=== PATIENT | male | born 1995 | race Caucasian/White ===

== ENCOUNTER 2017-01-15 21:07 | Emergency (ER) | payer OTHER ==
[2017-01-15 21:29] VITALS: BP 122/57
--- NOTE | 2017-01-16 03:36 | ED ---
Kenan Ledesma Rebecca, scribed for Oliver Roberts on 01/15/17 at 2200 . Laceration/Wound HPI - HPI Summary HPI Summary: Pt is a 21 y/o M who presents to ED c/o head laceration s/p skiing incident. Pt reports that tonight he was skiing and while performing a back flip, hit the posterior region of his head with the skiis. Incident occurred at 1800 tonight. Pain began immediately, has been constant since onset, and is localized to the region of the laceration. Pain is currently ranked 4/10. Sx aggravated and alleviated by nothing. Denies LOC. UTD Tetanus. - History of Current Complaint Stated Complaint: HEAD LAC Time Seen by Provider: 01/15/17 21:54 Hx Obtained From: Patient Onset/Duration: Sudden Onset, Still Present Aggravating: Nothing Alleviating: Nothing Timing: Constant Onset Severity: Moderate Current Severity: Moderate Pain Intensity: 4 Pain Scale Used: 0-10 Numeric Associated Signs & Symptoms: Negative - Allergy/Home Medications Allergies/Adverse Reactions: Allergies Allergy/AdvReac Type Severity Reaction Status Date / Time Amoxicillin Allergy Unknown Verified 01/15/17 21:27 Reaction Details Peanut-containing Drug Allergy Unknown Verified 01/15/17 21:27 Products Reaction Details PMH/Surg Hx/FS Hx/Imm Hx Previously Healthy: Yes Endocrine/Hematology History: Denies: Hx Diabetes Cardiovascular History: Denies: Hx Hypertension Infectious Disease History: No Infectious Disease History: Denies: Traveled Outside the [place] in Last 30 Days - Family History Known Family History: Negative: Hypertension - Social History Occupation: Student Alcohol Use: Occasionally Substance Use Type: Reports: None Smoking Status (MU): Never Smoked Tobacco Review of Systems Positive: Other - Posterior head laceration Neurological: Other - Denies LOC All Other Systems Reviewed And Are Negative: Yes Physical Exam Triage Information Reviewed: Yes Vital Signs On Initial Exam: Initial Vitals Temp Pulse Resp BP Pulse Ox 98.4 F 72 16 122/57 99 01/15/17 21:27 01/15/17 21:27 01/15/17 21:27 01/15/17 21:27 01/15/17 21:27 Vital Signs Reviewed: Yes Appearance: Positive: Well-Appearing, No Pain Distress Skin: Positive: Warm, Skin Color Reflects Adequate Perfusion, Dry, Other - 2 cm laceration to the left parietal temporal region Eyes: Positive: EOMI, CATALINA ENT: Positive: Normal ENT inspection Neck: Positive: Supple, Nontender Respiratory/Lung Sounds: Positive: Clear to Auscultation, Breath Sounds Present Cardiovascular: Positive: RRR, Pulses are Symmetrical in both Upper and Lower Extremities Abdomen Description: Positive: Nontender, Soft Bowel Sounds: Positive: Present Musculoskeletal: Positive: Normal, Strength/ROM Intact Neurological: Positive: Normal, Sensory/Motor Intact, Alert, Oriented to Person Place, Time Procedures - Laceration/Wound Repair 1 Location: head Description: Linear Anesthesia: 1.0%, Lido, Epi Length, Depth and Shape: 2 cm Closure: Fenton #__ Diagnostics - Vital Signs Vital Signs Temp Pulse Resp BP Pulse Ox 01/15/17 21:27 98.4 F 72 16 122/57 99 - Laboratory Lab Statement: Any lab studies that have been ordered have been reviewed, and results considered in the medical decision making process. Laceration Repair Course/Dx - Course Assessment/Plan: Pt is a 21 y/o M with a CC of posterior head laceration s/p injuy with skis at 1800 tonight. Associated pain is 4/10. Denies LOC. Lac repaired with 4 serafin. Pt will be D/C to home with a dx of scalp laceration. - Clinical Impression Provider Diagnoses: Scalp laceration Discharge - Discharge Plan Condition: Stable Disposition: HOME Patient Education Materials: Staple Care (ED), Laceration (ED) [facility] - [facility] Days (Have the wound checked in 3 days. Have serafin removed in 7 days. ) The documentation as recorded by the Kenan moon Rebecca accurately reflects the service I personally performed and the decisions made by Alejandra walters Emmanuel.
== END 2017-01-15 22:19 | disposition home or self-care (01) ==
LOC: ED 21:07
DX: S01.01XA Laceration without foreign body of scalp, initial encounter (principal); X58.XXXA Exposure to other specified factors, initial encounter; Y93.23 Activity, snow (alpine) (downhill) skiing, snowboarding, sledding, tobogganing and snow tubing; Y92.9 Unspecified place or not applicable
CPT/HCPCS: 12011; 99282

== ENCOUNTER 2017-08-22 21:28 | Emergency (ER) | payer OTHER ==
[2017-08-22] MEDS ORDERED: methylPREDNISolone 125 MG* 2 ML VIAL IV ONE (21:49)
[2017-08-22] MEDS ORDERED: EPINEPHrine AMP 1 MG/ML IM ONE (21:49)
[2017-08-22] MEDS ORDERED: diPHENhydraMINE IV* 25 MG in NS 0.9% 50 ML* 50 ML IVPB ONE (21:49)
[2017-08-22] MEDS ORDERED: NS 0.9% 1000 ML* 1,000 ML IV ONE ×2 (21:50→22:59)
[2017-08-22] MEDS ORDERED: Albuterol/Ipratropium NEB.SOL* Albuterol 2.5 MG/Ipratropium 0.5 MG 3 ML INH ONE (21:58)
[2017-08-22] MEDS ORDERED: EPINEPHRINE 1 MG/ML 1 ML VIAL ONE (22:10)
[2017-08-22 22:30] LABS: Hematocrit 45 % (42-52); Hemoglobin 15.6 g/dl (14.0-18.0); Mean Corpuscular HGB Conc 35 g/dl (31-36); Mean Corpuscular Hemoglobin 30 pg (27-31); Mean Corpuscular Volume 85 fL (80-94); Mean Platelet Volume 8 um3 (7.4-10.4); Red Blood Count 5.26 10^6/ul (4.0-5.4); Red Cell Distribution Width 13 % (10.5-15); White Blood Count 8.6 10^3/ul (3.5-10.8)
[2017-08-22 22:47] LABS: Albumin 4.2 g/dL (3.2-5.2); BUN/Creatinine Ratio 13.8 (8-20); EGFR African American 96.5 (>60); Globulin 2.9 g/dL (2-4); Potassium 3.4 mmol/L (3.5-5.0); Total Bilirubin 1.1 mg/dL (0.2-1.0); Total Protein 7.1 g/dL (6.4-8.9)
[2017-08-23 02:28] VITALS: BP 107/51
--- NOTE | 2017-08-23 10:40 | ED ---
Miguel Angel Ledesma Thomas, scribed for Meli Sánchez MD on 08/23/17 at 0159 . Progress - Progress Note Progress Note: The patient is a sign out from Dr. Duncan at shift change pending observation of allergic reaction. He does not have any CP, SOB, or swelling in his pharynx. He is stable and will be discharged home. Patient is agreeable to this plan. The documentation as recorded by the Miguel Angel moon Thomas accurately reflects the service I personally performed and the decisions made by , Meli Sánchez MD.
== END 2017-08-23 02:20 | disposition home or self-care (01) ==
LOC: ED 21:28
DX: T78.1XXA Other adverse food reactions, not elsewhere classified, initial encounter (principal); X58.XXXA Exposure to other specified factors, initial encounter
CPT/HCPCS: 36415; 80053; 85027; 94640; 96365; 96375; 99285; A9270-GY; J0171; J1200; J2930